=== PATIENT | male | born 1940 | race Caucasian/White ===

== ENCOUNTER 2017-12-20 18:23 | Inpatient (IN) | payer MEDICARE, BC ==
[~2017-12-20] VITALS: Ht 177.8 cm; Wt 78.0 kg
[~2017-12-20 18:23] MED LIST: ATOR20TA PO; METO25TA6 PO; MULT1TAB74 PO; NITR0.4T48 SL
[2017-12-20 20:15] LABS: BASOPHILS % (AUTO) 0 % (0-1); EOSINOPHILS # (AUTO) 0.1 X10'3 (0-0.9); EOSINOPHILS % (AUTO) 1.2 % (0-6); HEMATOCRIT 36.2 % (42.0-52.0); HEMOGLOBIN 12.6 g/dl (14.0-17.9); LYMPHOCYTES # (AUTO) 0.2 X10'3 (1.1-4.8); LYMPHOCYTES % (AUTO) 2.6 % (21-51); MEAN CORPUSCULAR HEMOGLOBIN 31.4 PG (27.0-31.0); MEAN CORPUSCULAR VOLUME 89.7 FL (78-98); MEAN PLATELET VOLUME 7.1 FL (7.4-10.4); MONOCYTES # (AUTO) 0.4 X10'3 (0-0.9); MONOCYTES % (AUTO) 6.2 % (2-12); NEUTROPHILS # (AUTO) 5.3 X10'3 (1.8-7.7); PLATELET COUNT 167 X10'3 (140-440); RED BLOOD COUNT 4.03 X10'6 (4.70-6.10); WHITE BLOOD COUNT 5.9 X10'3 (4.5-11.0)
[2017-12-20 20:25] LABS: INR 1.1 INR; PARTIAL THROMBOPLASTIN TIME 28 SECONDS (22-32); PROTHROMBIN TIME 11.7 SECONDS (9.0-12.0)
[2017-12-20 20:28] LABS: ALANINE AMINOTRANSFERASE 36 U/L (12-78); ALBUMIN 3.4 G/DL (3.4-5.0); ALBUMIN/GLOBULIN RATIO 1.2 (1.1-1.5); ALKALINE PHOSPHATASE 98 IU/L (46-116); ANION GAP 8 (8-16); ASPARTATE AMINO TRANSFERASE 22 U/L (10-37); BILIRUBIN,TOTAL 1.1 MG/DL (0.1-1.0); BLOOD UREA NITROGEN 30 MG/DL (7-18); BUN/CREATININE RATIO 27.3 (5.4-32.0); CALCIUM 7.9 MG/DL (8.5-10.1); CHLORIDE 105 MMOL/L (99-107); GLUCOSE 164 MG/DL (70-104); POTASSIUM 3.9 MMOL/L (3.5-5.1); SODIUM 139 MMOL/L (135-145); TOTAL CARBON DIOXIDE 25.6 MMOL/L (24-32); TOTAL PROTEIN 6.3 G/DL (6.4-8.2); eGFR 65 ML/MIN
[2017-12-20 22:21] LABS: CLARITY,URINE CLEAR (Clear); COLOR,URINE YELLOW (Yellow); GLUCOSE, URINE NEGATIVE (Neg); KETONES,URINE NEGATIVE (Neg); LEUKOCYTE ESTERASE ,URINE NEGATIVE (Neg); NITRITES, URINE NEGATIVE (Neg); OCCULT BLOOD,URINE NEGATIVE (Neg); PH,URINE 5.5 (4.8-8.0); PROTEIN,URINE NEGATIVE (Neg); UROBILINOGEN,URINE 0.2 E.U/dL (0.2-1.0)
[2017-12-20 22:26] LABS: UA COLLECTION TYPE CLN CATCH MIDSTREAM
[2017-12-20] MEDS ORDERED: APIX5TAB3 PO (22:54)
[2017-12-20] MEDS ORDERED: magnesium hydroxide 30ml (MOM) UD suspension PO PRN (23:30)
[2017-12-20] MEDS ORDERED: mag hydrox/Alum hydrox/simeth 30ml oral suspension PO PRN (23:30)
[2017-12-20] MEDS ORDERED: ondansetron/PF 4mg/2ml inj IV PRN (23:30)
[2017-12-20] MEDS ORDERED: acetaminophen 325mg tablet PO PRN ×2 (23:30)
[2017-12-20] MEDS ORDERED: normal saline 1000ml 1,000 ML IV ONE (23:35)
[2017-12-21 01:05] LABS: BASOPHILS % (AUTO) 0.2 % (0-1); EOSINOPHILS % (AUTO) 0.1 % (0-6); HEMATOCRIT 32.8 % (42.0-52.0); HEMOGLOBIN 11.1 g/dl (14.0-17.9); LYMPHOCYTES # (AUTO) 0.2 X10'3 (1.1-4.8); LYMPHOCYTES % (AUTO) 4.2 % (21-51); MEAN CORPUSCULAR HEMOGLOBIN 30.6 PG (27.0-31.0); MEAN CORPUSCULAR HGB CONC 33.7 % (33.0-36.5); MEAN CORPUSCULAR VOLUME 90.7 FL (78-98); MEAN PLATELET VOLUME 7.3 FL (7.4-10.4); MONOCYTES # (AUTO) 0.3 X10'3 (0-0.9); MONOCYTES % (AUTO) 5.8 % (2-12); NEUTROPHILS # (AUTO) 4.1 X10'3 (1.8-7.7); NEUTROPHILS % (AUTO) 89.7 % (42-75); PLATELET COUNT 152 X10'3 (140-440); RED BLOOD COUNT 3.61 X10'6 (4.70-6.10); WHITE BLOOD COUNT 4.6 X10'3 (4.5-11.0)
[2017-12-21 01:23] LABS: ANION GAP 8 (8-16); BLOOD UREA NITROGEN 28 MG/DL (7-18); BUN/CREATININE RATIO 26.7 (5.4-32.0); CALCIUM 7.8 MG/DL (8.5-10.1); CHLORIDE 107 MMOL/L (99-107); CREATININE 1.05 MG/DL (0.60-1.10); GLUCOSE 112 MG/DL (70-104); POTASSIUM 3.9 MMOL/L (3.5-5.1); SODIUM 140 MMOL/L (135-145); TOTAL CARBON DIOXIDE 25.4 MMOL/L (24-32); eGFR 69 ML/MIN
[2017-12-21] MEDS: metoprolol tartrate 25mg tablet PO SCH ×2 (08:00→19:24)
[2017-12-21] MEDS: apixaban 5mg tablet PO SCH (11:51)
[2017-12-21 16:15] VITALS: BP 132/61
[2017-12-21 16:55] VITALS: BP_SYST 113; BP_SYST 133; BP_DIAS 51; BP_DIAS 56
[2017-12-21 19:00] VITALS: BP 123/63
[2017-12-21] MEDS ORDERED: atorvastatin 20mg tablet PO SCH (21:00)
[2017-12-21 23:00] VITALS: BP 124/64
[2017-12-22 00:47] VITALS: BP_SYST 104; BP_SYST 125; BP_DIAS 53; BP_DIAS 64
[2017-12-22 03:00] VITALS: BP 129/60
[2017-12-22 06:08] LABS: BASOPHILS % (AUTO) 0.3 % (0-1); EOSINOPHILS # (AUTO) 0.1 X10'3 (0-0.9); EOSINOPHILS % (AUTO) 1.4 % (0-6); HEMOGLOBIN 11.1 g/dl (14.0-17.9); LYMPHOCYTES # (AUTO) 0.6 X10'3 (1.1-4.8); LYMPHOCYTES % (AUTO) 12.9 % (21-51); MEAN CORPUSCULAR HGB CONC 34.7 % (33.0-36.5); MEAN CORPUSCULAR VOLUME 89.4 FL (78-98); MEAN PLATELET VOLUME 7.3 FL (7.4-10.4); MONOCYTES # (AUTO) 0.7 X10'3 (0-0.9); NEUTROPHILS # (AUTO) 3.2 X10'3 (1.8-7.7); NEUTROPHILS % (AUTO) 69.4 % (42-75); PLATELET COUNT 155 X10'3 (140-440); RED BLOOD COUNT 3.59 X10'6 (4.70-6.10); RED CELL DISTRIBUTION WIDTH 13.9 % (11.5-14.5); WHITE BLOOD COUNT 4.6 X10'3 (4.5-11.0)
[2017-12-22 07:07] LABS: ALANINE AMINOTRANSFERASE 29 U/L (12-78); ALBUMIN 2.8 G/DL (3.4-5.0); ALKALINE PHOSPHATASE 75 IU/L (46-116); ANION GAP 8 (8-16); ASPARTATE AMINO TRANSFERASE 20 U/L (10-37); BILIRUBIN,TOTAL 0.5 MG/DL (0.1-1.0); BLOOD UREA NITROGEN 22 MG/DL (7-18); CHLORIDE 108 MMOL/L (99-107); GLUCOSE 91 MG/DL (70-104); MAGNESIUM 1.8 MG/DL (1.5-2.4); PHOSPHORUS 2.5 MG/DL (2.3-4.5); SODIUM 141 MMOL/L (135-145); TOTAL PROTEIN 5.6 G/DL (6.4-8.2); eGFR 73 ML/MIN
[2017-12-22 08:00] VITALS: BP_SYST 129; BP_SYST 131; BP_SYST 133; BP_DIAS 55; BP_DIAS 60; BP_DIAS 62
[2017-12-22] MEDS: apixaban 5mg tablet PO SCH (08:27)
[2017-12-22] MEDS: metoprolol tartrate 25mg tablet PO SCH (08:28)
[2017-12-22 11:00] VITALS: BP 133/58
== END 2017-12-22 15:32 | disposition home or self-care (01) | DRG 312 ==
LOC: ER 18:23 → ED HOLD 23:28 → EDBEDREQ 12-21 15:17 → PCU 3S 12-21 16:05
PROVIDERS: ADMIT Internal Medicine; ATTEND Internal Medicine
DX: R55 Syncope and collapse (principal); E86.0 Dehydration; I48.91 Unspecified atrial fibrillation; D64.9 Anemia, unspecified; E78.00 Pure hypercholesterolemia, unspecified; I10 Essential (primary) hypertension; E78.5 Hyperlipidemia, unspecified; Z79.01 Long term (current) use of anticoagulants; Z79.899 Other long term (current) drug therapy
CPT/HCPCS: 36415; 70450; 71045; 80048; 80053; 81003; 82330; 83735; 84100; 84443; 84484; 85025; 85610; 85730; 93005; 93306; 95816

== ENCOUNTER 2019-02-10 14:35 | Emergency (ER) | payer MEDICARE, BC ==
[~2019-02-10] VITALS: Ht 177.8 cm; Wt 70.5 kg
[~2019-02-10 14:35] MED LIST changes: +APIX5TAB3 PO
[2019-02-10 15:18] LABS: CLARITY,URINE CLOUDY (Clear); COLOR,URINE YELLOW (Yellow); GLUCOSE, URINE NEGATIVE (Neg); KETONES,URINE NEGATIVE (Neg); LEUKOCYTE ESTERASE ,URINE MODERATE (Neg); NITRITES, URINE POSITIVE (Neg); OCCULT BLOOD,URINE LARGE (Neg); PH,URINE 5.5 (4.8-8.0); PROTEIN,URINE TRACE mg/dl (Neg); UROBILINOGEN,URINE 0.2 E.U/dL (0.2-1.0)
[2019-02-10 15:27] LABS: UA COLLECTION TYPE CLN CATCH MIDSTREAM
[2019-02-10 15:28] LABS: BACTERIA,URINE 3+ /HPF (Neg); MUCUS STRANDS FEW /LPF (Neg); RBC,URINE 20-50 /HPF (0-2); RENAL CELLS, URINE FEW /HPF; SQUAMOUS EPITHELIAL CELL,UR NONE SEEN /LPF (FEW); TRANSITIONAL EPI CELLS,URINE FEW /HPF; WBC,URINE TNTC /HPF (0-4)
[2019-02-10 15:53] VITALS: BP 120/70
[2019-02-10] MEDS ORDERED: SULF1TAB49 PO (15:53)
== END 2019-02-10 16:05 | disposition home or self-care (01) ==
LOC: ER 14:36
DX: N39.0 Urinary tract infection, site not specified (principal); I48.91 Unspecified atrial fibrillation; E78.00 Pure hypercholesterolemia, unspecified; Z79.01 Long term (current) use of anticoagulants; Z79.899 Other long term (current) drug therapy
CPT/HCPCS: 81001; 87077; 87088; 87186; 99283

== ENCOUNTER 2019-03-10 07:38 | Emergency (ER) | payer MEDICARE, BC ==
[~2019-03-10] VITALS: Ht 177.8 cm; Wt 74.0 kg
[2019-03-10 07:42] VITALS: BP 135/56
[2019-03-10 07:58] LABS: CLARITY,URINE CLOUDY (Clear); COLOR,URINE YELLOW (Yellow); GLUCOSE, URINE NEGATIVE (Neg); KETONES,URINE NEGATIVE (Neg); LEUKOCYTE ESTERASE ,URINE LARGE (Neg); NITRITES, URINE POSITIVE (Neg); OCCULT BLOOD,URINE LARGE (Neg); PROTEIN,URINE 100 mg/dl (Neg); UROBILINOGEN,URINE 0.2 E.U/dL (0.2-1.0)
[2019-03-10 08:03] LABS: UA COLLECTION TYPE CLN CATCH MIDSTREAM
[2019-03-10 08:12] LABS: WBC,URINE TNTC /HPF (0-4)
[2019-03-10 08:13] LABS: RBC,URINE TNTC /HPF (0-2)
[2019-03-10 08:16] LABS: BACTERIA,URINE 2+ /HPF (Neg); SQUAMOUS EPITHELIAL CELL,UR NONE SEEN /LPF (FEW)
[2019-03-10] MEDS ORDERED: cephalexin 500mg capsule PO ONE (08:40)
[2019-03-10] MEDS ORDERED: CEPH500C5 PO (08:40)
--- NOTE | 2019-03-10 09:16 | NUR ---
BLADDER SCANNED FOR POST VOID RESIDUAL, ABOUT 15 MLS AFTER VOIDING
== END 2019-03-10 09:16 | disposition home or self-care (01) ==
LOC: ER 07:39
DX: N39.0 Urinary tract infection, site not specified (principal); I48.91 Unspecified atrial fibrillation; E78.00 Pure hypercholesterolemia, unspecified; Z79.2 Long term (current) use of antibiotics; Z79.899 Other long term (current) drug therapy
CPT/HCPCS: 81001; 87077; 87088; 87186; 99283

== ENCOUNTER 2019-03-16 15:58 | Emergency (ER) | payer MEDICARE, BC ==
[~2019-03-16] VITALS: Ht 177.8 cm; Wt 72.7 kg
[~2019-03-16 15:58] MED LIST changes: +CEPH500C5 PO
[2019-03-16] MEDS ORDERED: normal saline 1000ML IV soln IV ONE (17:05)
[2019-03-16] MEDS ORDERED: glycopyrrolate 0.2mg/ml inj IV ONE (17:05)
[2019-03-16 17:25] LABS: BASOPHILS % (AUTO) 0.2 % (0-1); EOSINOPHILS % (AUTO) 0.1 % (0-6); HEMATOCRIT 32.7 % (42.0-52.0); HEMOGLOBIN 11.2 g/dl (14.0-17.9); LYMPHOCYTES # (AUTO) 0.5 X10'3 (1.1-4.8); LYMPHOCYTES % (AUTO) 6.4 % (21-51); MEAN CORPUSCULAR HEMOGLOBIN 31.6 PG (27.0-31.0); MEAN CORPUSCULAR HGB CONC 34.2 g/dL (33.0-36.5); MEAN CORPUSCULAR VOLUME 92.4 FL (78-98); MEAN PLATELET VOLUME 6.7 FL (7.4-10.4); MONOCYTES # (AUTO) 0.6 X10'3 (0-0.9); MONOCYTES % (AUTO) 7.6 % (2-12); NEUTROPHILS # (AUTO) 7.2 X10'3 (1.8-7.7); NEUTROPHILS % (AUTO) 85.7 % (42-75); PLATELET COUNT 199 X10'3 (140-440); RED BLOOD COUNT 3.54 X10'6 (4.70-6.10); RED CELL DISTRIBUTION WIDTH 14.1 % (11.5-14.5); WHITE BLOOD COUNT 8.4 X10'3 (4.5-11.0)
[2019-03-16 17:40] LABS: PARTIAL THROMBOPLASTIN TIME 34 SECONDS (22-32)
[2019-03-16 17:43] LABS: ALANINE AMINOTRANSFERASE 34 U/L (12-78); ALBUMIN 3.3 G/DL (3.4-5.0); ALKALINE PHOSPHATASE 95 IU/L (46-116); ANION GAP 6 (8-16); ASPARTATE AMINO TRANSFERASE 20 U/L (10-37); BILIRUBIN,TOTAL 0.7 MG/DL (0.1-1.0); BLOOD UREA NITROGEN 22 MG/DL (7-18); BUN/CREATININE RATIO 19.5 (5.4-32.0); CALCIUM 8.1 MG/DL (8.5-10.1); CHLORIDE 106 MMOL/L (99-107); CREATININE 1.13 MG/DL (0.60-1.10); GLUCOSE 99 MG/DL (70-104); POTASSIUM 4.2 MMOL/L (3.5-5.1); SODIUM 139 MMOL/L (135-145); TOTAL PROTEIN 6.5 G/DL (6.4-8.2); eGFR 63 ML/MIN
[2019-03-16 17:46] LABS: MAGNESIUM 2.1 MG/DL (1.5-2.4); TROPONIN I < 0.04 NG/ML (0.0-0.05)
[2019-03-16 18:10] LABS: CLARITY,URINE CLEAR (Clear); COLOR,URINE YELLOW (Yellow); GLUCOSE, URINE 100 mg/dl (Neg); KETONES,URINE NEGATIVE (Neg); LEUKOCYTE ESTERASE ,URINE NEGATIVE (Neg); NITRITES, URINE NEGATIVE (Neg); OCCULT BLOOD,URINE NEGATIVE (Neg); PH,URINE 5.5 (4.8-8.0); PROTEIN,URINE NEGATIVE (Neg); UROBILINOGEN,URINE 0.2 E.U/dL (0.2-1.0)
[2019-03-16] MEDS ORDERED: lactulose 20gm/30ml cup PO ONE (18:15)
[2019-03-16] MEDS ORDERED: magnesium hydroxide 30ml (MOM) UD suspension PO ONE (18:15)
[2019-03-16] MEDS ORDERED: docusate sod 100mg capsule PO ONE (18:15)
[2019-03-16 18:17] LABS: UA COLLECTION TYPE VOIDED
[2019-03-16 18:49] VITALS: BP 152/70
[2019-03-17 07:44] LABS: OCCULT BLOOD STOOL POSITIVE (Neg)
== END 2019-03-16 19:25 | disposition home or self-care (01) ==
LOC: ER 15:58
DX: K64.4 Residual hemorrhoidal skin tags (principal); K59.00 Constipation, unspecified; I48.91 Unspecified atrial fibrillation; E78.00 Pure hypercholesterolemia, unspecified; Z79.2 Long term (current) use of antibiotics; Z79.899 Other long term (current) drug therapy
CPT/HCPCS: 36415; 80053; 81003; 82272; 83735; 84145; 84484; 85025; 85610; 85730; 93005; 99284; J7030

== ENCOUNTER 2019-03-18 22:19 | Emergency (ER) | payer MEDICARE, BC ==
[~2019-03-18] VITALS: Ht 177.8 cm; Wt 71.8 kg
[2019-03-18 22:56] VITALS: BP 156/66
[2019-03-19 01:37] LABS: BASOPHILS % (AUTO) 0.5 % (0-1); EOSINOPHILS # (AUTO) 0.1 X10'3 (0-0.9); EOSINOPHILS % (AUTO) 1.7 % (0-6); HEMATOCRIT 31.9 % (42.0-52.0); LYMPHOCYTES # (AUTO) 1.1 X10'3 (1.1-4.8); LYMPHOCYTES % (AUTO) 20.1 % (21-51); MEAN CORPUSCULAR HEMOGLOBIN 31.4 PG (27.0-31.0); MEAN CORPUSCULAR HGB CONC 34.6 g/dL (33.0-36.5); MEAN CORPUSCULAR VOLUME 90.8 FL (78-98); MEAN PLATELET VOLUME 7.4 FL (7.4-10.4); MONOCYTES # (AUTO) 0.6 X10'3 (0-0.9); MONOCYTES % (AUTO) 11.5 % (2-12); NEUTROPHILS # (AUTO) 3.6 X10'3 (1.8-7.7); NEUTROPHILS % (AUTO) 66.2 % (42-75); PLATELET COUNT 200 X10'3 (140-440); RED BLOOD COUNT 3.52 X10'6 (4.70-6.10); WHITE BLOOD COUNT 5.4 X10'3 (4.5-11.0)
[2019-03-19 01:41] LABS: ALANINE AMINOTRANSFERASE 31 U/L (12-78); ALBUMIN 3.1 G/DL (3.4-5.0); ALKALINE PHOSPHATASE 89 IU/L (46-116); ANION GAP 9 (8-16); ASPARTATE AMINO TRANSFERASE 20 U/L (10-37); BILIRUBIN,TOTAL 0.6 MG/DL (0.1-1.0); BLOOD UREA NITROGEN 19 MG/DL (7-18); BUN/CREATININE RATIO 17.4 (5.4-32.0); CALCIUM 8.3 MG/DL (8.5-10.1); CHLORIDE 107 MMOL/L (99-107); CREATININE 1.09 MG/DL (0.60-1.10); GLUCOSE 93 MG/DL (70-104); PARTIAL THROMBOPLASTIN TIME 33 SECONDS (22-32); POTASSIUM 3.8 MMOL/L (3.5-5.1); SODIUM 143 MMOL/L (135-145); TOTAL CARBON DIOXIDE 26.6 MMOL/L (24-32); TOTAL PROTEIN 6.3 G/DL (6.4-8.2); eGFR 66 ML/MIN
== END 2019-03-19 04:10 | disposition home or self-care (01) ==
LOC: ER 22:19
DX: R60.0 Localized edema (principal); R79.89 Other specified abnormal findings of blood chemistry; I48.91 Unspecified atrial fibrillation; E78.00 Pure hypercholesterolemia, unspecified; Z79.2 Long term (current) use of antibiotics; Z79.899 Other long term (current) drug therapy
CPT/HCPCS: 36415; 71045; 80053; 83880; 84484; 85025; 85610; 85730; 93005; 99283; 99284

== ENCOUNTER 2019-05-16 14:09 | Emergency (ER) | payer MEDICARE, BC ==
[~2019-05-16] VITALS: Ht 177.8 cm; Wt 72.5 kg
[2019-05-16 14:49] LABS: BASOPHILS % (AUTO) 0.4 % (0-1); HEMATOCRIT 34.4 % (42.0-52.0); LYMPHOCYTES # (AUTO) 0.9 X10'3 (1.1-4.8); LYMPHOCYTES % (AUTO) 17.7 % (21-51); MEAN CORPUSCULAR HEMOGLOBIN 31.7 PG (27.0-31.0); MEAN CORPUSCULAR HGB CONC 34.8 g/dL (33.0-36.5); MEAN CORPUSCULAR VOLUME 91.1 FL (78-98); MEAN PLATELET VOLUME 7.4 FL (7.4-10.4); MONOCYTES # (AUTO) 0.4 X10'3 (0-0.9); MONOCYTES % (AUTO) 8.4 % (2-12); NEUTROPHILS # (AUTO) 3.5 X10'3 (1.8-7.7); NEUTROPHILS % (AUTO) 72.5 % (42-75); PLATELET COUNT 179 X10'3 (140-440); RED BLOOD COUNT 3.77 X10'6 (4.70-6.10); RED CELL DISTRIBUTION WIDTH 13.5 % (11.5-14.5); WHITE BLOOD COUNT 4.9 X10'3 (4.5-11.0)
[2019-05-16 14:58] LABS: PARTIAL THROMBOPLASTIN TIME 29 SECONDS (22-32)
[2019-05-16 15:01] LABS: ALANINE AMINOTRANSFERASE 36 U/L (12-78); ALBUMIN 3.6 G/DL (3.4-5.0); ALBUMIN/GLOBULIN RATIO 1.2 (1.1-1.5); ALKALINE PHOSPHATASE 92 IU/L (46-116); ANION GAP 6 (8-16); ASPARTATE AMINO TRANSFERASE 24 U/L (10-37); BILIRUBIN,TOTAL 0.5 MG/DL (0.1-1.0); BLOOD UREA NITROGEN 28 MG/DL (7-18); BUN/CREATININE RATIO 23.7 (5.4-32.0); CALCIUM 8.4 MG/DL (8.5-10.1); CHLORIDE 108 MMOL/L (99-107); CREATININE 1.18 MG/DL (0.60-1.10); GLUCOSE 122 MG/DL (70-104); POTASSIUM 4.2 MMOL/L (3.5-5.1); SODIUM 142 MMOL/L (135-145); TOTAL CARBON DIOXIDE 28.5 MMOL/L (24-32); TOTAL PROTEIN 6.6 G/DL (6.4-8.2); eGFR 60 ML/MIN
[2019-05-16 15:24] VITALS: BP 125/68
== END 2019-05-16 16:22 | disposition home or self-care (01) ==
LOC: ER 14:10
DX: R00.2 Palpitations (principal); I48.91 Unspecified atrial fibrillation; E78.00 Pure hypercholesterolemia, unspecified; Z79.899 Other long term (current) drug therapy; Z79.01 Long term (current) use of anticoagulants
CPT/HCPCS: 36415; 71045; 80053; 83735; 83880; 84484; 85025; 85610; 85730; 93005; 99284

== ENCOUNTER 2022-02-10 10:53 | Inpatient (IN) | payer MEDICARE, BC ==
[~2022-02-10] VITALS: Ht 182.9 cm; Wt 81.8 kg
[~2022-02-10 10:53] MED LIST changes: -CEPH500C5 PO; +LOP25T PO; -METO25TA6 PO; +MULT-620 PO; -MULT1TAB74 PO
[2022-02-10 11:25] LABS: BASOPHILS % (AUTO) 0.4 % (0-1); EOSINOPHILS % (AUTO) 0.8 % (0-6); HEMATOCRIT 27.6 % (42.0-52.0); HEMOGLOBIN 9.5 g/dl (14.0-17.9); MEAN CORPUSCULAR HEMOGLOBIN 30.7 PG (27.0-31.0); MEAN CORPUSCULAR HGB CONC 34.4 g/dL (33.0-36.5); MEAN CORPUSCULAR VOLUME 89.3 FL (78-98); MEAN PLATELET VOLUME 7.1 FL (7.4-10.4); MONOCYTES # (AUTO) 0.5 X10'3 (0-0.9); MONOCYTES % (AUTO) 10.2 % (2-12); NEUTROPHILS # (AUTO) 3.5 X10'3 (1.8-7.7); NEUTROPHILS % (AUTO) 68.6 % (42-75); PLATELET COUNT 192 X10'3 (140-440); RED BLOOD COUNT 3.09 X10'6 (4.70-6.10); RED CELL DISTRIBUTION WIDTH 13.8 % (11.5-14.5); WHITE BLOOD COUNT 5.1 X10'3 (4.5-11.0)
[2022-02-10 11:45] LABS: ALANINE AMINOTRANSFERASE 23 U/L (12-78); ALBUMIN 2.7 G/DL (3.4-5.0); ALBUMIN/GLOBULIN RATIO 1.1 (1.1-1.5); ALKALINE PHOSPHATASE 56 IU/L (46-116); ANION GAP 11 (8-16); ASPARTATE AMINO TRANSFERASE 17 U/L (10-37); BILIRUBIN,TOTAL 0.4 MG/DL (0.1-1.0); BLOOD UREA NITROGEN 31 MG/DL (7-18); BUN/CREATININE RATIO 21.2 (5.4-32.0); CALCIUM 7.4 MG/DL (8.5-10.1); CHLORIDE 111 MMOL/L (99-107); CREATININE 1.46 MG/DL (0.60-1.10); GLUCOSE 110 MG/DL (70-104); POTASSIUM 4.1 MMOL/L (3.5-5.1); SODIUM 141 MMOL/L (135-145); TOTAL CARBON DIOXIDE 19.4 MMOL/L (24-32); TOTAL PROTEIN 5.2 G/DL (6.4-8.2); eGFR 46 ML/MIN
[2022-02-10] MEDS ORDERED: ATOR40TA72 PO (14:43)
[2022-02-10] MEDS ORDERED: APIX2.5T PO (14:43)
[2022-02-10] MEDS ORDERED: FLO0.4C PO (14:43)
[2022-02-10] MEDS ORDERED: LISI5TAB22 PO (14:45)
[2022-02-10] MEDS ORDERED: METO25TA6 PO (14:45)
[2022-02-10] MEDS ORDERED: pantoprazole 40MG/NS 100ML BAG 100 ML IV ONE (15:40)
[2022-02-10] MEDS ORDERED: magnesium 4gm in 100ml NS 100 ML IV PRN (15:55)
[2022-02-10] MEDS ORDERED: morphine 2 MG/ML inj. syringe IV PRN ×2 (15:55)
[2022-02-10] MEDS ORDERED: ondansetron/PF 4mg/2ml inj IV PRN (15:55)
[2022-02-10] MEDS ORDERED: mag hydrox/Alum hydrox/simeth 30ml oral suspension PO PRN (15:55)
[2022-02-10] MEDS ORDERED: magnesium 2GM in 50ml NS 50 ML IV PRN (15:55)
[2022-02-10] MEDS ORDERED: acetaminophen 325mg tablet PO PRN ×2 (15:55)
[2022-02-10] MEDS ORDERED: HYDROcodone/acetaminophen 10/325mg tab PO PRN (15:55)
[2022-02-10] MEDS ORDERED: potassium CL 10mEq/100ml bag 100 ML IV PRN (15:55)
[2022-02-10] MEDS ORDERED: diphenhydrAMINE 25mg capsule PO PRN (15:55)
[2022-02-10] MEDS ORDERED: PERFLUTREN PROTEIN-A MICROSPHR (Optison) 0.22 MG/ML 3ML VIAL IV ONE (15:55)
[2022-02-10] MEDS ORDERED: magnesium hydroxide 30ml (MOM) UD suspension PO PRN (15:55)
[2022-02-10] MEDS ORDERED: magnesium Cl slow-release 64mg tablet PO PRN (15:55)
[2022-02-10] MEDS ORDERED: POTASSIUM BICARB 20meq eff tab 20 MEQ TABLET.EFF PO PRN ×2 (15:55)
[2022-02-10] MEDS ORDERED: bisacodyl 10mg suppository rectal RC PRN (15:55)
[2022-02-10] MEDS ORDERED: HYDROcodone/acetaminophen 5mg/325mg tablet PO PRN (15:55)
[2022-02-10 16:41] LABS: CHOL/HDL RATIO 2.5 (0.00-4.99); CHOLESTEROL 96 MG/DL (0-200); HDL CHOLESTEROL 39 MG/DL (35-60); LDL CHOLESTEROL 48 MG/DL (50-100); TRIGLYCERIDES 52 MG/DL (20-135)
--- NOTE | 2022-02-10 17:23 | NUR ---
Received patient to room 3017A via gurney accompanied by x1 staff. Patient is alert and oriented in no apparent acute distress. Oriented patient to room and call light. Call light placed within patient's reach. Bed low and locked.
--- NOTE | 2022-02-10 17:24 | NUR ---
Notified by SARA Bhagat that blood transfusion order incorrect patient.
[2022-02-10] MEDS: normal saline 1000ml 1,000 ML IV SCH (17:51)
[2022-02-10 18:00] VITALS: BP 121/40
[2022-02-10 18:01] VITALS: BP 138/86
--- NOTE | 2022-02-10 18:28 | NUR ---
Problems reprioritized. Patient report given, questions answered & plan of care reviewed with SARA Laurent.
[2022-02-10] MEDS: K and/or MAG REPLACEMENT MC SCH (18:54)
[2022-02-10] MEDS: docusate sod 100mg capsule PO SCH (19:27)
[2022-02-10] MEDS: lisinopril 5mg tablet PO SCH (19:29)
[2022-02-10] MEDS: apixaban 2.5mg tablet PO SCH (19:30)
[2022-02-10] MEDS: metoprolol tartrate 25mg tablet PO SCH (19:30)
[2022-02-10 22:00] VITALS: BP 155/63
[2022-02-11] VITALS (8 sets, daily range): BP systolic 115–149; BP diastolic 42–70
[2022-02-11] MEDS: normal saline 1000ml 1,000 ML IV SCH ×2 (05:15→19:33)
[2022-02-11 06:56] LABS: BASOPHILS % (AUTO) 0.5 % (0-1); EOSINOPHILS # (AUTO) 0.1 X10'3 (0-0.9); EOSINOPHILS % (AUTO) 1.1 % (0-6); HEMATOCRIT 28.1 % (42.0-52.0); HEMOGLOBIN 9.5 g/dl (14.0-17.9); LYMPHOCYTES # (AUTO) 1.1 X10'3 (1.1-4.8); LYMPHOCYTES % (AUTO) 22.1 % (21-51); MEAN CORPUSCULAR HEMOGLOBIN 30.4 PG (27.0-31.0); MEAN CORPUSCULAR HGB CONC 33.7 g/dL (33.0-36.5); MEAN CORPUSCULAR VOLUME 90.2 FL (78-98); MEAN PLATELET VOLUME 7.7 FL (7.4-10.4); MONOCYTES # (AUTO) 0.4 X10'3 (0-0.9); MONOCYTES % (AUTO) 8.7 % (2-12); NEUTROPHILS # (AUTO) 3.4 X10'3 (1.8-7.7); NEUTROPHILS % (AUTO) 67.6 % (42-75); PLATELET COUNT 178 X10'3 (140-440); RED BLOOD COUNT 3.11 X10'6 (4.70-6.10); RED CELL DISTRIBUTION WIDTH 13.8 % (11.5-14.5)
--- NOTE | 2022-02-11 07:21 | NUR ---
Paged speech therapy to assess for swallowing issues.
[2022-02-11 07:38] LABS: ALANINE AMINOTRANSFERASE 20 U/L (12-78); ALBUMIN 2.7 G/DL (3.4-5.0); ALKALINE PHOSPHATASE 59 IU/L (46-116); ANION GAP 5 (8-16); ASPARTATE AMINO TRANSFERASE 18 U/L (10-37); BILIRUBIN,TOTAL 0.6 MG/DL (0.1-1.0); BLOOD UREA NITROGEN 29 MG/DL (7-18); BUN/CREATININE RATIO 20.7 (5.4-32.0); CALCIUM 7.7 MG/DL (8.5-10.1); CHLORIDE 111 MMOL/L (99-107); CHOL/HDL RATIO 2.5 (0.00-4.99); CHOLESTEROL 95 MG/DL (0-200); GLUCOSE 87 MG/DL (70-104); HDL CHOLESTEROL 38 MG/DL (35-60); LDL CHOLESTEROL 46 MG/DL (50-100); MAGNESIUM 1.9 MG/DL (1.5-2.4); PHOSPHORUS 2.8 MG/DL (2.3-4.5); POTASSIUM 4.4 MMOL/L (3.5-5.1); SODIUM 140 MMOL/L (135-145); TOTAL CARBON DIOXIDE 24.2 MMOL/L (24-32); TOTAL PROTEIN 5.4 G/DL (6.4-8.2); TRIGLYCERIDES 50 MG/DL (20-135); eGFR 49 ML/MIN
[2022-02-11] MEDS: K and/or MAG REPLACEMENT MC SCH ×2 (08:00→19:13)
[2022-02-11] MEDS: docusate sod 100mg capsule PO SCH ×2 (08:00→19:51)
[2022-02-11] MEDS: apixaban 2.5mg tablet PO SCH ×2 (08:51→19:51)
[2022-02-11] MEDS: atorvastatin 20mg tablet PO SCH (08:51)
[2022-02-11] MEDS: tamsulosin 0.4mg capsule PO SCH (08:52)
[2022-02-11] MEDS: metoprolol tartrate 25mg tablet PO SCH (08:52)
--- NOTE | 2022-02-11 09:45 | NUR ---
Paged vascular for VL carotid. Called MRI for status; no answer. Will try again.
--- NOTE | 2022-02-11 11:05 | NUR ---
vascular at bedside and patient was taking some "cat naps" per . His heart rate went down to 48 and stayed there. All other VS stable. Pt is asymptomatic. No c/o dizziness.
--- NOTE | 2022-02-11 11:10 | NUR ---
Called Dr Laird re: HR in low 40's. NO new orders at this time. Pt is stable.
--- NOTE | 2022-02-11 11:41 | NUR ---
neuro consult request submitted
[2022-02-11 11:48] LABS: CLARITY,URINE CLEAR (Clear); COLOR,URINE YELLOW (Yellow); GLUCOSE, URINE NEGATIVE (Neg); KETONES,URINE NEGATIVE (Neg); LEUKOCYTE ESTERASE ,URINE NEGATIVE (Neg); NITRITES, URINE NEGATIVE (Neg); OCCULT BLOOD,URINE NEGATIVE (Neg); PROTEIN,URINE NEGATIVE (Neg); UROBILINOGEN,URINE 0.2 E.U/dL (0.2-1.0)
[2022-02-11 11:52] LABS: UA COLLECTION TYPE NON-SPECIFIED
--- NOTE | 2022-02-11 12:37 | NUR ---
Pt's bg is 66 but was raised up to 80 with 1 apple juice. He was asymptomatic the whole time. His A1C is 6.[address] Laird will monitor glucose with labs. No need for ac/hs accuchecks. D/C'd per MD order and spot check BG if symptomatic.
--- NOTE | 2022-02-11 12:42 | NUR ---
Paged Dr Laird Message: [phone]. Brian Quintana. Per house sup, no MRI until monday. Eugenia [phone] Transaction number: [id number]
--- NOTE | 2022-02-11 16:30 | NUR ---
Per MD Laird - Get Case mgmt or [place] sup needs to send patient to [facility] in the AM (02/12) for MRI/MRA. Paged Case mgmt and let CRN know.
--- NOTE | 2022-02-11 16:33 | NUR ---
Paged Case mgmt [phone]. Jaron Quintana. Pls setup MRI/MRA at [facility] per Dr Laird for 02/12/22 AM, [place]. Thx
--- NOTE | 2022-02-11 19:05 | NUR ---
Pt has been able to make his needs be known thoughout shift. Call light within reach at all times. All ordered test/procedures were completed throughout shift except MRI/MRA - this will need to be done at [facility], case mgmt has been notified via internal page. CRN is aware as well. Report given to QUINTIN shift nurseAnastasiia NOC nurse to resume care of patient. All questions, comments, concerns answered at this time.
[2022-02-11] MEDS: lisinopril 5mg tablet PO SCH (19:51)
[2022-02-11] MEDS ORDERED: aspirin 81mg tab.chew PO ONE (22:00)
[2022-02-12 02:00] VITALS: BP 138/63
[2022-02-12 06:00] VITALS: BP 151/59
[2022-02-12 07:00] LABS: BASOPHILS % (AUTO) 0.3 % (0-1); EOSINOPHILS # (AUTO) 0.1 X10'3 (0-0.9); EOSINOPHILS % (AUTO) 1.1 % (0-6); HEMATOCRIT 31.3 % (42.0-52.0); HEMOGLOBIN 10.6 g/dl (14.0-17.9); LYMPHOCYTES % (AUTO) 20.1 % (21-51); MEAN CORPUSCULAR HEMOGLOBIN 30.5 PG (27.0-31.0); MEAN CORPUSCULAR HGB CONC 33.9 g/dL (33.0-36.5); MEAN CORPUSCULAR VOLUME 89.9 FL (78-98); MEAN PLATELET VOLUME 7.9 FL (7.4-10.4); MONOCYTES # (AUTO) 0.5 X10'3 (0-0.9); MONOCYTES % (AUTO) 9.3 % (2-12); NEUTROPHILS # (AUTO) 3.5 X10'3 (1.8-7.7); NEUTROPHILS % (AUTO) 69.2 % (42-75); PLATELET COUNT 181 X10'3 (140-440); RED BLOOD COUNT 3.48 X10'6 (4.70-6.10); WHITE BLOOD COUNT 5.1 X10'3 (4.5-11.0)
[2022-02-12 07:27] LABS: ALANINE AMINOTRANSFERASE 22 U/L (12-78); ALKALINE PHOSPHATASE 67 IU/L (46-116); ANION GAP 7 (8-16); ASPARTATE AMINO TRANSFERASE 24 U/L (10-37); BILIRUBIN,TOTAL 0.5 MG/DL (0.1-1.0); BLOOD UREA NITROGEN 29 MG/DL (7-18); CHLORIDE 112 MMOL/L (99-107); CREATININE 1.32 MG/DL (0.60-1.10); GLUCOSE 83 MG/DL (70-104); MAGNESIUM 1.7 MG/DL (1.5-2.4); PHOSPHORUS 2.7 MG/DL (2.3-4.5); POTASSIUM 4.5 MMOL/L (3.5-5.1); SODIUM 143 MMOL/L (135-145); TOTAL CARBON DIOXIDE 23.7 MMOL/L (24-32); TOTAL PROTEIN 5.9 G/DL (6.4-8.2); eGFR 52 ML/MIN
[2022-02-12] MEDS: K and/or MAG REPLACEMENT MC SCH (08:00)
[2022-02-12] MEDS: docusate sod 100mg capsule PO SCH (08:00)
--- NOTE | 2022-02-12 08:23 | NUR ---
Asked case managment to coordinate MRi at [facility]. waiting response
[2022-02-12] MEDS ORDERED: aspirin 81mg tab.chew PO SCH (08:30)
[2022-02-12] MEDS ORDERED: iohexol 350MG/ML 100ml bottle IV ONE (09:00)
[2022-02-12 11:00] VITALS: BP 164/75
[2022-02-12] MEDS: tamsulosin 0.4mg capsule PO SCH (11:38)
[2022-02-12] MEDS: atorvastatin 20mg tablet PO SCH (11:38)
[2022-02-12] MEDS: apixaban 2.5mg tablet PO SCH (11:38)
[2022-02-12] MEDS: normal saline 1000ml 1,000 ML IV SCH (11:49)
[2022-02-12] MEDS ORDERED: normal saline 1000ml 1,000 ML IV ONE (11:50)
--- NOTE | 2022-02-12 16:08 | NUR ---
Message: [phone] Brian Mariano finished his bolus and awaits discharge thank you. Leandra RUIZ [phone]
--- NOTE | 2022-02-12 17:31 | NUR ---
IV removed anserwed all questions and discharged patient home with .
--- NOTE | 2022-02-21 10:04 | NUR ---
Case Management DC follow up: Spoke with Patient via telephone.S/P : Patient Reports: Denies:Acute/continuous chest pain,emergent SOB, resp distress,orthopnea, dyspnea,N/V, weakness,vertigo, syncopal episodes , orthostatic hypotension, headache, blurry vision, s/s of stroke/BE-FAST, blader pain,dysuria, polyuria,hematuria,retention,abdominal pain/distention, hematochezia,melena,unexplained bruising, bleeding fever, chills.Verbalizes understanding of signs, and symptoms that warrant 9-11/ER visit for further evaluation.Verbalizes he no longer has heart palpitations when he lays down at night.Verbalizes understanding of new Rx:, why prescribed; continues/resumes current Rx as ordered.Verbalizes compliance with aftercare, keeping well hydrated.Verbalized he has seen Dr. Brody and has event monitor placed, and has seen Dr. Barbour. Verbalizes that both doctors have been apprised of recent hospitalization , and metoprolol is on hold due to bradycardia and syncopal episode.Verbalized his care while in hospital was good, and all nurses are good people.Needs met, questions/concerns addressed at DC.No new questions/concerns regarding resent hospital stay and/or DC status at this time.
== END 2022-02-12 17:28 | disposition home or self-care (01) | DRG 309 ==
LOC: ER 10:54 → ED HOLD 15:59 → PCU 3S 17:11
PROVIDERS: ADMIT Family Medicine; ATTEND Family Medicine
PROC: B3251ZZ Computerized Tomography (CT Scan) of Bilateral Common Carotid Arteries using Low Osmolar Contrast (ICD-10-PCS; principal; 2022-02-12)
PROC: B32G1ZZ Computerized Tomography (CT Scan) of Bilateral Vertebral Arteries using Low Osmolar Contrast (ICD-10-PCS; 2022-02-12)
PROC: B32R1ZZ Computerized Tomography (CT Scan) of Intracranial Arteries using Low Osmolar Contrast (ICD-10-PCS; 2022-02-12)
PROC: B3281ZZ Computerized Tomography (CT Scan) of Bilateral Internal Carotid Arteries using Low Osmolar Contrast (ICD-10-PCS; 2022-02-12)
DX: R00.1 Bradycardia, unspecified (principal); N17.9 Acute kidney failure, unspecified; E78.00 Pure hypercholesterolemia, unspecified; E78.5 Hyperlipidemia, unspecified; Z66 Do not resuscitate; T44.7X5A Adverse effect of beta-adrenoreceptor antagonists, initial encounter; E86.0 Dehydration; I10 Essential (primary) hypertension; I48.0 Paroxysmal atrial fibrillation; N40.0 Benign prostatic hyperplasia without lower urinary tract symptoms; Z79.01 Long term (current) use of anticoagulants; Z79.899 Other long term (current) drug therapy; Z80.8 Family history of malignant neoplasm of other organs or systems; Z82.49 Family history of ischemic heart disease and other diseases of the circulatory system; Y92.89 Other specified places as the place of occurrence of the external cause
CPT/HCPCS: 36415; 70450; 70496; 70498; 70544; 70547; 70551; 71045; 80053; 80061; 81003; 82948; 83036; 83735; 83880; 84100; 84443; 84484; 85025; 85651; 86885; 86900; 86901; 86920; 92508; 92616; 93005; 93306; 93880; 97116; 97161; 97530; 99285; G0378; J3490; J7030; Q9967

== ENCOUNTER 2023-01-03 13:57 | Emergency (ER) | payer MEDICARE, BC ==
[~2023-01-03] VITALS: Ht 177.8 cm; Wt 75.0 kg
[~2023-01-03 13:57] MED LIST changes: +APIX2.5T PO; -APIX5TAB3 PO; -ATOR20TA PO; +ATOR40TA72 PO; +FLO0.4C PO; +LISI5TAB22 PO; -LOP25T PO; -MULT-620 PO; -NITR0.4T48 SL
[2023-01-03 13:59] VITALS: BP 164/68
[2023-01-03] MEDS ORDERED: PHEN1SUP96 PR (17:23)
[2023-01-03] MEDS ORDERED: POLY17PO10 PO (17:23)
== END 2023-01-03 17:41 | disposition home or self-care (01) ==
LOC: ER 13:58
DX: K64.4 Residual hemorrhoidal skin tags (principal); K59.00 Constipation, unspecified; I51.9 Heart disease, unspecified; E78.00 Pure hypercholesterolemia, unspecified; Z87.448 Personal history of other diseases of urinary system; Z79.899 Other long term (current) drug therapy; Z79.1 Long term (current) use of non-steroidal anti-inflammatories (NSAID); Z79.2 Long term (current) use of antibiotics
CPT/HCPCS: 99282

== ENCOUNTER 2024-08-02 07:23 | Day surgery (SDC) | payer MEDICARE, OTHER ==
[~2024-08-02] VITALS: Ht 182.9 cm; Wt 73.7 kg
[2024-08-02] VITALS (10 sets, daily range): BP systolic 123–180; BP diastolic 58–74; PULSE 60–73; RESP 16; TEMP 97.6; O2SAT 97–99
[~2024-08-02 07:23] MED LIST changes: +PHEN1SUP96 PR
[2024-08-02] MEDS ORDERED: ATOR-2 PO (07:53)
[2024-08-02] MEDS ORDERED: MULT-1085 PO (07:57)
[2024-08-02] MEDS ORDERED: NITR0.4T51 SL (07:57)
[2024-08-02] MEDS ORDERED: turmeric PO (07:57)
[2024-08-02] MEDS ORDERED: ceFAZolin 2gm in dextrose, iso 50 ML IV ONE (08:10)
[2024-08-02 08:16] LABS: BASOPHILS % (AUTO) 0.3 % (0-1); EOSINOPHILS # (AUTO) 0.1 X10'3 (0-0.9); HEMATOCRIT 31.8 % (42.0-52.0); HEMOGLOBIN 10.9 g/dl (14.0-17.9); LYMPHOCYTES # (AUTO) 0.8 X10'3 (1.1-4.8); LYMPHOCYTES % (AUTO) 15.7 % (21-51); MEAN CORPUSCULAR HEMOGLOBIN 30.8 PG (27.0-31.0); MEAN CORPUSCULAR HGB CONC 34.4 g/dL (33.0-36.5); MEAN CORPUSCULAR VOLUME 89.5 FL (78-98); MEAN PLATELET VOLUME 7.9 FL (7.4-10.4); MONOCYTES # (AUTO) 0.7 X10'3 (0-0.9); MONOCYTES % (AUTO) 12.2 % (2-12); NEUTROPHILS # (AUTO) 3.8 X10'3 (1.8-7.7); NEUTROPHILS % (AUTO) 70.8 % (42-75); PLATELET COUNT 196 X10'3 (140-440); RED BLOOD COUNT 3.56 X10'6 (4.70-6.10); RED CELL DISTRIBUTION WIDTH 15.3 % (11.5-14.5); WHITE BLOOD COUNT 5.3 X10'3 (4.5-11.0)
[2024-08-02 08:23] LABS: INR 1.1 INR
[2024-08-02 08:33] LABS: ALBUMIN 3.6 G/DL (3.4-5.0); ANION GAP 9 (8-16); BLOOD UREA NITROGEN 28 MG/DL (7-18); BUN/CREATININE RATIO 21.5 (10.0-20.0); CALCIUM 7.9 MG/DL (8.5-10.1); CHLORIDE 109 MMOL/L (99-107); GLUCOSE 82 MG/DL (70-104); POTASSIUM 4.2 MMOL/L (3.5-5.1); SODIUM 145 MMOL/L (135-145); TOTAL CARBON DIOXIDE 27.4 MMOL/L (24-32); eCRCL 46 ML/MIN; eGFR 53 ML/MIN
[2024-08-02] MEDS: normal saline 1000ml 1,000 ML IV SCH ×2 (08:52→12:21)
[2024-08-02] MEDS: VANCOMYCIN 1GM 200ML H20 (PEG) 200 ML IV ONE (08:52)
[2024-08-02] MEDS ORDERED: midazolam 1 mg/ML 2ml injection ONE (08:54)
[2024-08-02] MEDS ORDERED: LIDOcaine 1% W/epiNEPHrine 1:100,000 20ml vial ONE (08:54)
[2024-08-02] MEDS ORDERED: vancomycin 1,000mg inj ONE (08:54)
[2024-08-02] MEDS ORDERED: fentaNYL/PF 50MCG/1 ML 2ML syringe ONE (08:54)
[2024-08-02] MEDS ORDERED: iohexol 350 MG/ML 50ML vial IV ONE (08:54)
[2024-08-02] MEDS: ketorolac trometh 15mg/ml vial 15 MG/ML ML IV ONE (12:23)
== END 2024-08-02 13:10 | disposition home or self-care (01) ==
LOC: SSTAY O 07:23
PROVIDERS: ATTEND Internal Medicine Cardiovascular Disease
DX: I49.5 Sick sinus syndrome (principal); I48.0 Paroxysmal atrial fibrillation; R00.1 Bradycardia, unspecified; N18.9 Chronic kidney disease, unspecified; Z79.01 Long term (current) use of anticoagulants
CPT/HCPCS: 33208; 36415; 71045; 80048; 83735; 85025; 85610; 93005; 99152; 99153; C1785; C1898; J1885; J2250; J3010; J3370; J3372; J3490; J7030; Z7610; Q9967

== ENCOUNTER 2024-08-03 14:30 | Emergency (ER) | payer MEDICARE, OTHER ==
[~2024-08-03] VITALS: Ht 182.9 cm; Wt 72.1 kg
[~2024-08-03 14:30] MED LIST changes: +ATOR-2 PO; +MULT-1085 PO; +NITR0.4T51 SL; +turmeric PO
[2024-08-03 14:35] VITALS: BP 131/65; PULSE 66; RESP 16; TEMP 98; O2SAT 99
== END 2024-08-03 16:23 | disposition home or self-care (01) ==
LOC: ER 14:31
DX: M79.89 Other specified soft tissue disorders (principal); I48.91 Unspecified atrial fibrillation; E78.00 Pure hypercholesterolemia, unspecified; Z79.899 Other long term (current) drug therapy
CPT/HCPCS: 99281

== ENCOUNTER 2024-08-09 10:30 | Emergency (ER) | payer MEDICARE, OTHER ==
[~2024-08-09] VITALS: Ht 182.9 cm; Wt 70.0 kg
[~2024-08-09 10:30] MED LIST changes: -ATOR40TA72 PO; -LISI5TAB22 PO; -PHEN1SUP96 PR
[2024-08-09 10:36] VITALS: TEMP 98.3
[2024-08-09 11:17] LABS: BASOPHILS % (AUTO) 0.4 % (0-1); EOSINOPHILS # (AUTO) 0.1 X10'3 (0-0.9); EOSINOPHILS % (AUTO) 0.9 % (0-6); HEMATOCRIT 35.8 % (42.0-52.0); HEMOGLOBIN 12.1 g/dl (14.0-17.9); LYMPHOCYTES # (AUTO) 0.7 X10'3 (1.1-4.8); LYMPHOCYTES % (AUTO) 12.5 % (21-51); MEAN CORPUSCULAR HEMOGLOBIN 30.2 PG (27.0-31.0); MEAN CORPUSCULAR HGB CONC 33.9 g/dL (33.0-36.5); MEAN CORPUSCULAR VOLUME 89.1 FL (78-98); MEAN PLATELET VOLUME 7.8 FL (7.4-10.4); MONOCYTES # (AUTO) 0.7 X10'3 (0-0.9); MONOCYTES % (AUTO) 11.2 % (2-12); NEUTROPHILS # (AUTO) 4.4 X10'3 (1.8-7.7); PLATELET COUNT 192 X10'3 (140-440); RED BLOOD COUNT 4.01 X10'6 (4.70-6.10); RED CELL DISTRIBUTION WIDTH 15.1 % (11.5-14.5); WHITE BLOOD COUNT 5.9 X10'3 (4.5-11.0)
[2024-08-09 11:30] LABS: ALANINE AMINOTRANSFERASE 28 U/L (12-78); ALBUMIN 3.3 G/DL (3.4-5.0); ALKALINE PHOSPHATASE 101 IU/L (46-116); ANION GAP 8 (8-16); ASPARTATE AMINO TRANSFERASE 24 U/L (10-37); BILIRUBIN,TOTAL 0.7 MG/DL (0.1-1.0); BLOOD UREA NITROGEN 25 MG/DL (7-18); BUN/CREATININE RATIO 20.7 (10.0-20.0); CALCIUM 8.4 MG/DL (8.5-10.1); CHLORIDE 104 MMOL/L (99-107); CREATININE 1.21 MG/DL (0.60-1.10); GLUCOSE 140 MG/DL (70-104); POTASSIUM 4.3 MMOL/L (3.5-5.1); SODIUM 136 MMOL/L (135-145); TOTAL CARBON DIOXIDE 23.6 MMOL/L (24-32); TOTAL PROTEIN 6.7 G/DL (6.4-8.2); eCRCL 47 ML/MIN; eGFR 57 ML/MIN
[2024-08-09 11:40] LABS: PRO BRAIN NATRIURETIC PEPTIDE 344 PG/ML (0-450)
[2024-08-09 14:37] VITALS: BP 135/75; PULSE 75; RESP 14; O2SAT 98
== END 2024-08-09 14:40 | disposition home or self-care (01) ==
LOC: ER 10:30
DX: I48.0 Paroxysmal atrial fibrillation (principal); I48.91 Unspecified atrial fibrillation; E78.00 Pure hypercholesterolemia, unspecified; Z87.440 Personal history of urinary (tract) infections; Z79.899 Other long term (current) drug therapy
CPT/HCPCS: 36415; 71045; 80053; 83880; 84484; 85025; 93005; 99285

== ENCOUNTER 2024-08-31 11:18 | Inpatient (IN) | payer MEDICARE, OTHER ==
[~2024-08-31] VITALS: Ht 182.9 cm; Wt 74.0 kg
[2024-08-31 12:28] LABS: BASOPHILS % (AUTO) 0.4 % (0-1); EOSINOPHILS % (AUTO) 0.4 % (0-6); HEMATOCRIT 30.8 % (42.0-52.0); HEMOGLOBIN 10.6 g/dl (14.0-17.9); LYMPHOCYTES # (AUTO) 0.7 X10'3 (1.1-4.8); LYMPHOCYTES % (AUTO) 10.8 % (21-51); MEAN CORPUSCULAR HEMOGLOBIN 31.1 PG (27.0-31.0); MEAN CORPUSCULAR HGB CONC 34.5 g/dL (33.0-36.5); MEAN CORPUSCULAR VOLUME 90.3 FL (78-98); MEAN PLATELET VOLUME 7.8 FL (7.4-10.4); MONOCYTES # (AUTO) 0.5 X10'3 (0-0.9); MONOCYTES % (AUTO) 8.4 % (2-12); NEUTROPHILS # (AUTO) 4.9 X10'3 (1.8-7.7); PLATELET COUNT 169 X10'3 (140-440); RED BLOOD COUNT 3.42 X10'6 (4.70-6.10); RED CELL DISTRIBUTION WIDTH 15.3 % (11.5-14.5); WHITE BLOOD COUNT 6.1 X10'3 (4.5-11.0)
[2024-08-31 12:44] LABS: ALANINE AMINOTRANSFERASE 26 U/L (12-78); ALKALINE PHOSPHATASE 86 IU/L (46-116); ANION GAP 9 (8-16); ASPARTATE AMINO TRANSFERASE 16 U/L (10-37); BILIRUBIN,TOTAL 0.5 MG/DL (0.1-1.0); BLOOD UREA NITROGEN 36 MG/DL (7-18); BUN/CREATININE RATIO 22.1 (10.0-20.0); CALCIUM 8.1 MG/DL (8.5-10.1); CHLORIDE 108 MMOL/L (99-107); CREATININE 1.63 MG/DL (0.60-1.10); GLUCOSE 160 MG/DL (70-104); POTASSIUM 4.1 MMOL/L (3.5-5.1); SODIUM 140 MMOL/L (135-145); TOTAL CARBON DIOXIDE 23.5 MMOL/L (24-32); eCRCL 37 ML/MIN; eGFR 41 ML/MIN
[2024-08-31] MEDS ORDERED: HYDROcodone/acetaminophen 5mg/325mg tablet PO PRN (14:25)
[2024-08-31] MEDS ORDERED: magnesium sulf-water 2g/50mL 50 ML IV PRN (14:25)
[2024-08-31] MEDS ORDERED: ondansetron/PF 4mg/2ml inj IV PRN (14:25)
[2024-08-31] MEDS ORDERED: magnesium Cl slow-release 64mg tablet PO PRN (14:25)
[2024-08-31] MEDS ORDERED: potassium Cl 20 mEq SR tablet PO PRN ×2 (14:25)
[2024-08-31] MEDS ORDERED: magnesium sulf-water 4G/100mL 100 ML IV PRN (14:25)
[2024-08-31] MEDS ORDERED: acetaminophen 325mg tablet PO PRN (14:25)
[2024-08-31] MEDS ORDERED: potassium Cl 40MEQ/1/2NS 520ml 520 ML IV PRN (14:25)
[2024-08-31] MEDS: normal saline 1000ml 1,000 ML IV SCH (15:12)
[2024-08-31] MEDS: K and/or MAG REPLACEMENT MC SCH (20:00)
[2024-09-01 03:12] LABS: BASOPHILS % (AUTO) 0.3 % (0-1); EOSINOPHILS # (AUTO) 0.1 X10'3 (0-0.9); HEMATOCRIT 31.1 % (42.0-52.0); HEMOGLOBIN 10.8 g/dl (14.0-17.9); LYMPHOCYTES # (AUTO) 1.2 X10'3 (1.1-4.8); LYMPHOCYTES % (AUTO) 14.2 % (21-51); MEAN CORPUSCULAR HEMOGLOBIN 31.1 PG (27.0-31.0); MEAN CORPUSCULAR HGB CONC 34.7 g/dL (33.0-36.5); MEAN CORPUSCULAR VOLUME 89.7 FL (78-98); MEAN PLATELET VOLUME 7.8 FL (7.4-10.4); MONOCYTES # (AUTO) 0.8 X10'3 (0-0.9); MONOCYTES % (AUTO) 9.7 % (2-12); NEUTROPHILS # (AUTO) 6.4 X10'3 (1.8-7.7); NEUTROPHILS % (AUTO) 74.8 % (42-75); PLATELET COUNT 174 X10'3 (140-440); RED BLOOD COUNT 3.47 X10'6 (4.70-6.10); RED CELL DISTRIBUTION WIDTH 14.8 % (11.5-14.5); WHITE BLOOD COUNT 8.6 X10'3 (4.5-11.0)
[2024-09-01] MEDS: hydrALAZINE 20mg/ml inj. IV ONE (03:22)
[2024-09-01 03:27] LABS: ANION GAP 6 (8-16); BLOOD UREA NITROGEN 29 MG/DL (7-18); BUN/CREATININE RATIO 21.3 (10.0-20.0); CALCIUM 8.2 MG/DL (8.5-10.1); CHLORIDE 110 MMOL/L (99-107); CREATININE 1.36 MG/DL (0.60-1.10); GLUCOSE 82 MG/DL (70-104); MAGNESIUM 2.3 MG/DL (1.5-2.4); POTASSIUM 4.3 MMOL/L (3.5-5.1); SODIUM 142 MMOL/L (135-145); TOTAL CARBON DIOXIDE 25.6 MMOL/L (24-32); eCRCL 44 ML/MIN; eGFR 50 ML/MIN
[2024-09-01 11:45] VITALS: BP 142/69; PULSE 63; RESP 16; TEMP 98.4; O2SAT 100
[2024-09-01] MEDS ORDERED: nitroGLYCERIN 0.4mg SUBLingual tab SL PRN (14:45)
[2024-09-01] MEDS ORDERED: pneumococcal 23-VAL P-sac vacc 25 mcg/0.5ml vial IMVAC ONE (14:50)
[2024-09-01 17:37] VITALS: RESP 16; O2SAT 97
[2024-09-01 18:00] VITALS: BP 139/61; PULSE 60; RESP 18; TEMP 97; O2SAT 100
[2024-09-01] MEDS: amiodarone 200mg tablet PO SCH (19:40)
[2024-09-01] MEDS: apixaban 2.5mg tablet PO SCH (19:40)
[2024-09-01] MEDS: metoprolol tartrate 25mg tablet PO SCH (19:41)
[2024-09-01 20:00] VITALS: RESP 16; O2SAT 98
[2024-09-01] MEDS ORDERED: amiodarone 200mg tablet PO SCH (20:00)
[2024-09-01 22:00] VITALS: BP 173/68; PULSE 65; RESP 16; TEMP 97.7; O2SAT 98
[2024-09-02 06:00] VITALS: BP 183/78; PULSE 73; RESP 16; TEMP 97.6; O2SAT 96
[2024-09-02 06:32] LABS: ALBUMIN 3.4 G/DL (3.4-5.0); ANION GAP 8 (8-16); BLOOD UREA NITROGEN 29 MG/DL (7-18); BUN/CREATININE RATIO 21.6 (10.0-20.0); CALCIUM 8.8 MG/DL (8.5-10.1); CHLORIDE 110 MMOL/L (99-107); CREATININE 1.34 MG/DL (0.60-1.10); GLUCOSE 93 MG/DL (70-104); MAGNESIUM 2.3 MG/DL (1.5-2.4); POTASSIUM 4.5 MMOL/L (3.5-5.1); SODIUM 142 MMOL/L (135-145); TOTAL CARBON DIOXIDE 24.5 MMOL/L (24-32); eCRCL 44 ML/MIN; eGFR 51 ML/MIN
[2024-09-02 06:35] LABS: BASOPHILS % (AUTO) 0.5 % (0-1); EOSINOPHILS % (AUTO) 0.6 % (0-6); HEMATOCRIT 35.7 % (42.0-52.0); HEMOGLOBIN 12.3 g/dl (14.0-17.9); LYMPHOCYTES # (AUTO) 0.9 X10'3 (1.1-4.8); LYMPHOCYTES % (AUTO) 11.7 % (21-51); MEAN CORPUSCULAR HEMOGLOBIN 30.7 PG (27.0-31.0); MEAN CORPUSCULAR HGB CONC 34.4 g/dL (33.0-36.5); MEAN CORPUSCULAR VOLUME 89.2 FL (78-98); MONOCYTES # (AUTO) 0.7 X10'3 (0-0.9); MONOCYTES % (AUTO) 9.1 % (2-12); NEUTROPHILS # (AUTO) 6.2 X10'3 (1.8-7.7); NEUTROPHILS % (AUTO) 78.1 % (42-75); PLATELET COUNT 207 X10'3 (140-440); RED CELL DISTRIBUTION WIDTH 15.4 % (11.5-14.5); WHITE BLOOD COUNT 7.9 X10'3 (4.5-11.0)
[2024-09-02] MEDS: multivitamins, therapeutics tablet PO SCH (07:01)
[2024-09-02] MEDS: atorvastatin 20mg tablet PO SCH (07:02)
[2024-09-02 08:00] VITALS: BP_SYST 174; BP_SYST 180; BP_DIAS 73; BP_DIAS 90; PULSE 68; PULSE 70
[2024-09-02] MEDS ORDERED: TURMERIC PO SCH (08:00)
[2024-09-02 10:00] VITALS: BP 182/71; PULSE 72; RESP 16; TEMP 98.1; O2SAT 98
[2024-09-02] MEDS ORDERED: AMI200T PO (10:40)
[2024-09-02] MEDS ORDERED: LOP25T PO (10:41)
[2024-09-02] MEDS: hydrALAZINE 20mg/ml inj. IV SCH (14:00)
== END 2024-09-02 16:30 | disposition home health service (06) | DRG 308 ==
LOC: ER 11:19 → ED HOLD 14:25 → ORTHO 4S 09-01 12:05
PROVIDERS: ADMIT Internal Medicine; ATTEND Internal Medicine
PROC: 4B02XSZ Measurement of Cardiac Pacemaker, External Approach (ICD-10-PCS; principal; 2024-08-31)
DX: I47.10 Supraventricular tachycardia, unspecified (principal); N17.0 Acute kidney failure with tubular necrosis; E78.00 Pure hypercholesterolemia, unspecified; I12.9 Hypertensive chronic kidney disease with stage 1 through stage 4 chronic kidney disease, or unspecified chronic kidney disease; I48.91 Unspecified atrial fibrillation; N18.9 Chronic kidney disease, unspecified; N40.0 Benign prostatic hyperplasia without lower urinary tract symptoms; I49.5 Sick sinus syndrome; Z79.01 Long term (current) use of anticoagulants; Z85.819 Personal history of malignant neoplasm of unspecified site of lip, oral cavity, and pharynx; Z95.0 Presence of cardiac pacemaker
CPT/HCPCS: 36415; 71045; 80048; 80053; 83735; 84484; 85025; 87081; 90732; 93005; 97116; 97161; 97530; 99285; G0378; J0360; J7030